=== PATIENT | female | born 1990 | race Caucasian/White ===

== ENCOUNTER 2019-05-03 06:48 | Emergency (ER) | payer BC ==
[2019-05-03 07:16] VITALS: BMI 22.3
[2019-05-03] MEDS ORDERED: ONDANSETRON 4 MG/2 ML VIAL IVPUSH ONE (07:49)
[2019-05-03] MEDS ORDERED: SODIUM CHLORIDE 1,000 ML IV STA ×2 (07:50→08:31)
[2019-05-03] MEDS ORDERED: ONDANSETRON 4 MG/2 ML VIAL ONE (07:55)
[2019-05-03 08:24] LABS: BASO % 0.4 % (0-2.0); HEMOGLOBIN 14.7 GM/dL (10.7-15.3); LYMPH % 6.4 % (8-40); MCHC 34.1 g/dl (32.0-36.0); MEAN CELL VOLUME 90.8 fl (80-96); MEAN PLT VOLUME 9.3 fl (7.5-11.1); MONO % 4.6 % (3.8-10.2); NEUT % 88.6 % (42.8-82.8); PLATELET COUNT 223 K/MM3 (134-434); RBC 4.74 M/mm3 (3.60-5.2); WHITE BLOOD COUNT 7.5 K/mm3 (4.0-10.0)
[2019-05-03 08:31] LABS: PH,URINE 5.5 (5.0-8.0); URINE APPEARANCE CLOUDY; URINE BILIRUBIN NEGATIVE (NEGATIVE); URINE COLOR YELLOW; URINE GLUCOSE (UA) NEGATIVE (NEGATIVE); URINE KETONE 3+ (NEGATIVE); URINE LEUK ESTERASE NEGATIVE (NEGATIVE); URINE NITRITE NEGATIVE (NEGATIVE); URINE PROTEIN 1+ (NEGATIVE); URINE UROBILINOGEN 0.2 mg/dL (0.2-1.0)
[2019-05-03 08:54] LABS: ALBUMIN 3.6 g/dl (3.4-5.0); BILIRUBIN,TOTAL 0.3 mg/dL (0.2-1); BLOOD UREA NITROGEN 12.4 mg/dL (7-18); CREATININE 0.7 mg/dL (0.55-1.3); POTASSIUM 3.6 mmol/L (3.5-5.1); TOT PROT 7.1 g/dl (6.4-8.2)
[2019-05-03] MEDS ORDERED: MAG HYDROX/AL HYDROX/SIMETH -MYLANTA- ORAL SUSPENSION PO ONE (09:05)
[2019-05-03] MEDS ORDERED: MAG HYDROX/AL HYDROX/SIMETH 30 ML UNIT-DOSE CUP ONE (09:08)
--- NOTE | 2019-05-03 09:47 | PDOC ---
Documentation entered by Sharmin Carreon SCRIBE, acting as scribe for lAden Parada MD. Alden Parada MD: This documentation has been prepared by the Lauri yap Adrianna, SCRIBE, under my direction and personally reviewed by me in its entirety. I confirm that the documentation accurately reflects all work, treatment, procedures, and medical decision making performed by me. History of Present Illness - General Chief Complaint: Pain Stated Complaint: VOMITING Time Seen by Provider: 05/03/19 07:34 - History of Present Illness Initial Comments: The patient is a 29 year old female, with a significant PMH of Hashimotos thyroiditis, who presents to the ED for evaluation of abdominal pain, nausea, and vomit for one day. Patient notes she developed abdominal pain while at rest yesterday, that is a 7/10 in nature and is most prominent at the epigastric region. Her pain is exacerbated with standing up and eating food. She endorses multiple episodes of nausea and NBNB vomit, noting she has not been able to keep anything down since she had soup for dinner last night. Patient reports associated loose, watery stools and generalized weakness at this time. She has taken meclizine and pepto bismol without any relief of symptoms. 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, and has been in contact with sick patients ( last shift was 2 days ago, in contact with flu). Denies any recent travel, dysuria, frequency, urgency, hematuria, melena, URI symptoms, fever, or chills. Allergies: Fluconazole Surgical History: None reported Social History: Occasional EtOH use. Denies tobacco or illicit drug use Past History - Past Medical History Allergies/Adverse Reactions: Allergies Allergy/AdvReac Type Severity Reaction Status Date / Time fluconazole [From Diflucan] Allergy Verified 05/03/19 07:13 Home Medications: Ambulatory Orders Levothyroxine [Synthroid -] 125 mcg PO DAILY 05/03/19 Asthma: Yes COPD: No Seizures: Yes - Immunization History Immunization Up to Date: Yes - Psycho Social/Smoking Cessation Hx Smoking History: Never smoked Have you smoked in the past 12 months: No Information on smoking cessation initiated: No Hx Alcohol Use: No Drug/Substance Use Hx: No Review of Systems - Review of Systems Comments:: CONSTITUTIONAL: +Generalized weakness. No fever, no chills, no fatigue EYES: No visual changes ENT: No ear pain, no sore throat CARDIOVASCULAR: No chest pain, no palpitations RESPIRATORY: No cough, no SOB GI: +Epigastric abdominal pain. +Nausea. +Multiple episodes of NBNB vomit. + Diarrhea. No constipation. GENITOURINARY: No dysuria, no frequency, no hematuria MUSKULOSKELETAL: No backpain, no joint pain, no myalgias SKIN: No rash NEURO: No headache *Physical Exam - Vital Signs Last Vital Signs Temp Pulse Resp BP Pulse Ox 98.6 F 124 H 17 130/88 100 05/03/19 07:10 05/03/19 07:10 05/03/19 07:10 05/03/19 07:10 05/03/19 07:10 - Physical Exam CONSTITUTIONAL: Well-appearing; well-nourished; in no apparent distress HEAD: Normocephalic; atraumatic EYES: PERRL; EOM intact. No scleral icterus. ENMT: +Dry mucous membranes. External appears normal; normal oropharynx NECK: Supple; non-tender; no cervical lymphadenopathy CARD: +Tachycardic. Normal S1, S2; no murmurs, rubs, or gallops RESP: Normal chest excursion with respiration; breath sounds clear and equal bilaterally; no wheezes, rhonchi, or rales ABD: +Mild epigastric tenderness to palpation. Soft, non-distended; no palpable organomegaly, no palpable hernias EXT: Normal ROM in all four extremities; non-tender to palpation; distal pulses intact SKIN: Warm, dry, no rash NEURO: No focal neurological deficiencies. ED Treatment Course - LABORATORY CBC & Chemistry Diagram: 05/03/19 08:15 05/03/19 08:15 - ADDITIONAL ORDERS Additional order review: Laboratory Results 05/03/19 05/03/19 05/03/19 08:15 08:00 08:00 Sodium 140 Potassium 3.6 Chloride 107 Carbon Dioxide 26 Anion Gap 8 BUN 12.4 Creatinine 0.7 Est GFR (CKD-EPI)AfAm 136.66 Est GFR (CKD-EPI)NonAf 117.91 Random Glucose 110 H Calcium 8.0 L Total Bilirubin 0.3 AST 19 ALT 21 Alkaline Phosphatase 46 Total Protein 7.1 Albumin 3.6 Lipase 72 L Urine Color Yellow Urine Appearance Cloudy Urine pH 5.5 Ur Specific [place] 1.036 H Urine Protein 1+ H Urine Glucose (UA) Negative Urine Ketones 3+ H Urine Blood Trace Urine Nitrite Negative Urine Bilirubin Negative Urine Urobilinogen 0.2 Ur Leukocyte Esterase Negative Urine HCG, Qual Negative 05/03/19 08:15 RBC 4.74 MCV 90.8 MCHC 34.1 RDW 13.0 MPV 9.3 Neutrophils % 88.6 H Lymphocytes % 6.4 L Monocytes % 4.6 Eosinophils % 0.0 Basophils % 0.4 - Medications Given in the ED: ED Medications Discontinued Medications Generic Name Dose Route Start Last Admin Trade Name Freq PRN Reason Stop Dose Admin Al Hydroxide/Mg Hydroxide 30 ml 05/03/19 09:05 05/03/19 09:10 Mylanta Suspension - PO 05/03/19 09:06 30 ml ONCE ONE Administration Sodium Chloride 1,000 mls @ 1,000 mls/hr 05/03/19 07:50 05/03/19 08:23 Normal Saline - IV 05/03/19 08:49 1,000 mls/hr ASDIR STA Administration Sodium Chloride 1,000 mls @ 1,000 mls/hr 05/03/19 08:31 05/03/19 08:58 Normal Saline - IV 05/03/19 09:30 1,000 mls/hr ASDIR STA Administration Ondansetron HCl 4 mg 05/03/19 07:49 05/03/19 08:00 Zofran Injection IVPUSH 05/03/19 07:50 4 mg ONCE ONE Administration Medical Decision Making - Medical Decision Making 05/03/19 09:45 Patient is a well-appearing 29-year-old female who presents with intermittent periumbilical and epigastric abdominal pain, associated with numerous bouts of nonbloody, nonbilious vomiting and loose watery stools. In the ER, patient is noted to be initially tachycardic with mild tenderness to the epigastrium and periumbilically initial exam. No tenderness at McBurney's point is identified and there is no Ayers sign. CBC/CMP are within normal limits. There is no evidence of leukocytosis or electrolyte abnormalities. Lipase is normal. Urinalysis reveals elevated specific gravity and 3+ ketones consistent with dehydration. Patient is received antiemetics, H2 blockers and normal saline. On reassessment, patient is with minimal discomfort in the epigastrium only. There is no focal tenderness anywhere else to suggest acute appendicitis or diverticulitis or cholecystitis or colitis at this time. AGE is likely patient tolerates p.o. Will discharge with Zofran, H2 blockers and. PMD follow-up. Discharge - Discharge Information Problems reviewed: Yes Clinical Impression/Diagnosis: Epigastric pain Nausea and vomiting Qualifiers: Vomiting type: unspecified Vomiting Intractability: non-intractable Qualified Code(s): R11.2 - Nausea with vomiting, unspecified Diarrhea Qualifiers: Diarrhea type: unspecified type Qualified Code(s): R19.7 - Diarrhea, unspecified Condition: Stable Disposition: HOME - Follow up/Referral Referrals: Russel Guy MD [Staff Physician] - - Patient Discharge Instructions Patient Printed Discharge Instructions: DI for Epigastric Pain, DI for Vomiting -- Adult, DI for Diarrhea and Traveler's Diarrhea -- Adult - Post Discharge Activity
[2019-05-03 10:04] VITALS: BP 119/82; PULSE 87; TEMP 98
== END 2019-05-03 10:30 | disposition home or self-care (01) ==
LOC: JER 06:48
PROC: 3E033GC Introduction of Other Therapeutic Substance into Peripheral Vein, Percutaneous Approach (ICD-10-PCS; principal; 2019-05-03)
PROC: 3E0337Z Introduction of Electrolytic and Water Balance Substance into Peripheral Vein, Percutaneous Approach (ICD-10-PCS; 2019-05-03)
DX: R11.2 Nausea with vomiting, unspecified (principal); R10.13 Epigastric pain; Z88.8 Allergy status to other drugs, medicaments and biological substances; E06.3 Autoimmune thyroiditis
CPT/HCPCS: 36415; 80053; 81003; 83690; 84703; 85025; 99283-25; J7030